=== PATIENT | female | born 1960 | race Caucasian/White ===

== ENCOUNTER 2018-10-11 19:46 | Emergency (ER) | payer BC ==
[~2018-10-11] VITALS: Ht 167.6 cm; Wt 104.5 kg
[2018-10-11 20:54] LABS: BASO # 0.1 10^3/uL (0.0-0.2); BASO % 0.6 % (0.0-1.0); EOS # 0.2 10^3/uL (0.0-0.50); EOS % 1.7 % (0.0-3.0); HEMOGLOBIN 14.6 g/dl (12.0-15.5); LYMPH # 1.6 10^3/uL (1.5-4.5); LYMPH % 13.5 % (24.0-44.0); MEAN CORPUSCULAR HEMOGLOBIN 31.4 pg (27.0-33.0); MEAN CORPUSCULAR VOLUME 92.5 fl (80.0-96.0); MONO # 0.8 10^3/uL (0.0-0.8); MONO % 6.4 % (0.0-5.0); NEUTROPHILS # 9.2 10^3/uL (1.8-7.7); NEUTROPHILS % 77.5 % (36.0-66.0); PLATELET COUNT, AUTOMATED 237 10^3/uL (150-450); RED BLOOD COUNT 4.65 10^6/uL (4.00-5.40); WHITE BLOOD COUNT 11.9 10^3/uL (4.0-10.0)
[2018-10-11 21:17] LABS: ALBUMIN 3.9 GM/DL (3.2-5.2); ALT/SGPT 39 U/L (12-78); BILIRUBIN,DIRECT < 0.1 MG/DL (0.0-0.2); BILIRUBIN,TOTAL 0.2 MG/DL (0.2-1.0); BLOOD UREA NITROGEN 20 MG/DL (7-18); CALCIUM LEVEL 8.6 MG/DL (8.5-10.1); CARBON DIOXIDE LEVEL 27 MEQ/L (21-32); CHLORIDE LEVEL 107 MEQ/L (98-107); CREATININE FOR GFR 0.89 MG/DL (0.55-1.30); GLOMERULAR FILTRATION RATE > 60.0 (>51); GLUCOSE, FASTING 98 MG/DL (70-100); LIPASE 210 U/L (73-393); POTASSIUM SERUM 3.9 MEQ/L (3.5-5.1); SODIUM LEVEL 141 MEQ/L (136-145); TOTAL PROTEIN 7.6 GM/DL (6.4-8.2)
[2018-10-11] MEDS ORDERED: ISOVUE-370 76% 100ML VIAL (Q9967) As Ordered ONE (22:33)
--- NOTE | 2018-10-11 23:42 | REPVR ---
EXAM: CT Abdomen and Pelvis With Contrast EXAM DATE/TIME: 10/11/2018 10:46 PM CLINICAL HISTORY: 57 years old, female; Abdominal pain; Localized; Right upper quadrant (ruq); Additional info: Ruq pain and abdominal distenstion/bloating TECHNIQUE: Imaging protocol: Axial computed tomography images of the abdomen and pelvis with intravenous contrast. Coronal and sagittal reformatted images were created and reviewed. Radiation optimization: All CT scans at this facility use at least one of these dose optimization techniques: automated exposure control; mA and/or kV adjustment per patient size (includes targeted exams where dose is matched to clinical indication); or iterative reconstruction. Contrast material: ISOVUE 370; Contrast volume: 100 ml; Contrast route: IV; COMPARISON: No relevant prior studies available. FINDINGS: ABDOMEN: Liver: There is fatty infiltration of the liver. Gallbladder and bile ducts: There are multiple gallstones in the gallbladder with slight surrounding induration of the gallbladder and trace pericholecystic fluid or wall edema. The gallbladder is slightly distended measuring 4.5 cm in diameter. Pancreas: Normal. No ductal dilation. Spleen: Normal. No splenomegaly. Adrenals: Normal. No mass. Kidneys and ureters: Normal. No hydronephrosis. Stomach and bowel: Sutures at the cecal tip consistent with prior appendectomy. There is colonic diverticulosis without evidence of diverticulitis. Appendix: No evidence of appendicitis. PELVIS: Bladder: Unremarkable as visualized. Reproductive: Unremarkable as visualized. ABDOMEN and PELVIS: Intraperitoneal space: Trace free fluid in the left adnexa. Bones/joints: Facet arthropathy of the lower lumbar spine with slight anterolisthesis of L4 relative to L5. Soft tissues: Residua of previous low transverse pelvic incision. Vasculature: Normal. No abdominal aortic aneurysm. Lymph nodes: Normal. No enlarged lymph nodes. IMPRESSION: 1. Cholelithiasis with pericholecystic fluid or wall edema and slight surrounding induration consistent with cholecystitis. There is slight distention of the gallbladder measuring 4.5 cm in diameter. 2. Fatty infiltration of the liver. 3. Status post appendectomy. 4. Colonic diverticulosis without diverticulitis. 5. Trace free fluid in the left adnexa which is nonspecific. Electronically signed by: Nathan Schmidt On 10/11/2018 23:42:04 PM
[2018-10-12 00:54] VITALS: BP 143/93
--- NOTE | 2018-10-16 17:15 | ED PDOC ---
Post-Departure Follow-Up Pt called and left voicemail to inquire as to how she was doing and if she had a f/u appt with a General Surgeon, no answer so left brief voicemail requesting return call. Pt returned my call and stated she was feeling much better - absent of abdominal pain, eating and drinking low fat/no fat. Moving bowels on a regular basis. Denies fever/chills, nausea/vomiting, lethargy, fatigue/malaise, change in bowel habits, hematochezia/melena, unexplained weight loss, jaundice-yellow sclera or skin noticed - new onset or any other new presenting sxs. Requested local pharmacy, pt reports [place], [place]. Explained that two antibiotics would be sent to her pharmacy and request she pick them up as soon as possible, provided explanation as to why antibiotics are being prescribed. Pt states follow up is next week as she is still traveling and that she would picker operator antibiotics in the next 24hrs. Pt denies any further questions upon conclusion of phone call. PCP is Dr. Ledezma [facility], [facility] Maritza Molina Oct 16, 2018 17:15
[2018-10-16] MEDS ORDERED: FLAG500T PO (17:34)
[2018-10-16] MEDS ORDERED: CIPR-249 PO (17:34)
== END 2018-10-12 01:20 | disposition home or self-care (01) ==
LOC: M ED 19:46
DX: K80.10 Calculus of gallbladder with chronic cholecystitis without obstruction (principal); I10 Essential (primary) hypertension; Z88.2 Allergy status to sulfonamides; Z91.018 Allergy to other foods
CPT/HCPCS: 36415; 74177; 80048; 80076; 81001; 83690; 85025; 99284; Q9967